=== PATIENT | female | born 1990 | race Caucasian/White ===

== ENCOUNTER 2016-11-08 20:13 | Emergency (ER) | payer MEDICAID, OTHER ==
[~2016-11-08] VITALS: Ht 152.4 cm; Wt 94.8 kg
[~2016-11-08 20:13] MED LIST: ASPI325T; COLA100C2; DOCU10CA PO; MOTR200T44 PO; PERC5TAB8; TYLE325T5 PO
[2016-11-08 20:14] VITALS: BP 11/64
[2016-11-08] MEDS ORDERED: NORCO, ANEXSIA 5/325MG TABLET (HYDROcodone/ACETAMINOPHEN) PO ONE (21:30)
[2016-11-08] MEDS ORDERED: NAPROXEN 250 MG TAB PO ONE (21:30)
[2016-11-08] MEDS ORDERED: PENICILLIN V POTASSIUM 500 MG TAB PO ONE (21:30)
[2016-11-08] MEDS ORDERED: NAPR500T PO (21:36)
[2016-11-08] MEDS ORDERED: PENI250T57 PO (21:36)
== END 2016-11-08 21:57 | disposition home or self-care (01) ==
LOC: M ED 21:37
DX: K03.9 Disease of hard tissues of teeth, unspecified (principal); F17.200 Nicotine dependence, unspecified, uncomplicated

== ENCOUNTER → 2017-07-02 | Outpatient (REF) | payer OTHER ==
[~2017-07-02] MED LIST changes: +NAPR500T PO; +PENI250T57 PO
== END ==
LOC: M LAB REF 11:56
PROVIDERS: ATTEND Surgery
DX: N39.0 Urinary tract infection, site not specified (principal)

== ENCOUNTER 2018-06-15 09:58 | Inpatient (IN) | payer OTHER ==
[2018-06-15] MEDS: CEPHALEXIN 500 MG CAP PO (10:45)
[2018-06-15 12:03] LABS: AMPHETAMINES LEVEL URINE POSITIVE (NEGATIVE); BARBITURATES URINE NEGATIVE (NEGATIVE); BENZODIAZEPINES URINE POSITIVE (NEGATIVE); CANNABINOIDS URINE NEGATIVE (NEGATIVE); COCAINE METABOLITE URINE NEGATIVE (NEGATIVE); METHADONE URINE NEGATIVE (NEGATIVE); OPIATES URINE NEGATIVE (NEGATIVE); PHENCYCLIDINE URINE NEGATIVE (NEGATIVE)
[2018-06-15 12:06] LABS: HEMATOCRIT 38.1 % (36.0-47.0); HEMOGLOBIN 13.6 g/dl (12.0-15.5); MEAN CORPUSCULAR HEMOGLOBIN 32.7 pg (27.0-33.0); MEAN CORPUSCULAR HGB CONC 35.7 g/dl (32.0-36.5); MEAN CORPUSCULAR VOLUME 91.6 fl (80.0-96.0); PLATELET COUNT, AUTOMATED 218 10^3/uL (150-450); RED BLOOD COUNT 4.16 10^6/uL (4.00-5.40); RED CELL DISTRIBUTION WIDTH 12.4 % (11.5-14.5); WHITE BLOOD COUNT 8.3 10^3/uL (4.0-10.0)
[2018-06-15 12:32] LABS: CONTROL LINE HCG INT CTR LINE PRESENT; HCG, SERUM QUALITATIVE NEGATIVE (NEGATIVE)
[2018-06-15 12:42] LABS: ACETAMINOPHEN LEVEL < 2.0 UG/ML (10.0-30.0); ALBUMIN 4.2 GM/DL (3.2-5.2); ALBUMIN/GLOBULIN RATIO 1.14 (1.00-1.93); ALKALINE PHOSPHATASE 81 U/L (45-117); ALT/SGPT 305 U/L (12-78); ANION GAP 10 MEQ/L (8-16); AST/SGOT 137 U/L (7-37); BILIRUBIN,DIRECT 0.3 MG/DL (0.0-0.2); BILIRUBIN,TOTAL 0.9 MG/DL (0.2-1.0); BLOOD UREA NITROGEN 20 MG/DL (7-18); CALCIUM LEVEL 8.6 MG/DL (8.5-10.1); CARBON DIOXIDE LEVEL 21 MEQ/L (21-32); CHLORIDE LEVEL 107 MEQ/L (98-107); CREATININE FOR GFR 0.69 MG/DL (0.55-1.30); ETHYL ALCOHOL (ETHANOL) < 0.003 % (0.000-0.010); GLOMERULAR FILTRATION RATE > 60.0 (>60); GLUCOSE, FASTING 77 MG/DL (70-100); POTASSIUM SERUM 3.9 MEQ/L (3.5-5.1); SODIUM LEVEL 138 MEQ/L (136-145); TOTAL PROTEIN 7.9 GM/DL (6.4-8.2)
[2018-06-15] MEDS ORDERED: ACETAMINOPHEN TAB 650MG DOSE (2X325MG) PO (13:30)
[2018-06-15] MEDS ORDERED: MAALOX 30 ML SUSP *UDC PO (13:30)
[2018-06-15] MEDS ORDERED: MOM 30ML SUSPENSION UDC PO (13:30)
[2018-06-15] MEDS: IBUPROFEN 600 MG TAB PO (13:39)
[2018-06-15 14:06] LABS: HEPATITIS B SURFACE ANTIGEN NEGATIVE (NEGATIVE)
[2018-06-15 15:32] LABS: HEPATITIS A ANTIBODY IGM NEGATIVE (NEGATIVE); HEPATITIS B CORE ANTIBODY IGM NEGATIVE (NEGATIVE); HIV SCREEN CENTAUR EXPOSED NEGATIVE (NEGATIVE)
[2018-06-15 15:38] LABS: HEPATITIS C VIRUS ABY INDEX 0.9 INDEX (<0.8)
[2018-06-16] MEDS: INFLUENZA QUADRIVALENT PF VACCINE 0.5ML SYRINGE (90686) IM (09:22)
[2018-06-16] MEDS: cloNIDine 0.1 MG TAB PO (15:18)
[2018-06-16] MEDS: IBUPROFEN 400 MG TAB PO ×2 (15:19→23:04)
[2018-06-16] MEDS: BUPRENORPHINE/NALOXONE 8-2MG SUBLINGUAL TABLET(SUBOXONE) SL (18:14)
[2018-06-16] MEDS: hydrOXYzine 50 MG TAB PO (23:03)
[2018-06-16] MEDS: traZODone 50 MG TAB PO (23:04)
[2018-06-17 07:33] LABS: ALBUMIN 3.3 GM/DL (3.2-5.2); ALBUMIN/GLOBULIN RATIO 1.03 (1.00-1.93); ALKALINE PHOSPHATASE 94 U/L (45-117); ALT/SGPT 317 U/L (12-78); ANION GAP 6 MEQ/L (8-16); AST/SGOT 181 U/L (7-37); BILIRUBIN,TOTAL 0.3 MG/DL (0.2-1.0); BLOOD UREA NITROGEN 15 MG/DL (7-18); CALCIUM LEVEL 8.8 MG/DL (8.5-10.1); CARBON DIOXIDE LEVEL 27 MEQ/L (21-32); CHLORIDE LEVEL 106 MEQ/L (98-107); CREATININE FOR GFR 0.67 MG/DL (0.55-1.30); GLOMERULAR FILTRATION RATE > 60.0 (>60); GLUCOSE, FASTING 110 MG/DL (70-100); SODIUM LEVEL 139 MEQ/L (136-145); TOTAL PROTEIN 6.5 GM/DL (6.4-8.2)
[2018-06-17] MEDS ORDERED: BUPRENORPHINE/NALOXONE 8-2MG SUBLINGUAL TABLET(SUBOXONE) SL (09:00)
[2018-06-17] MEDS: BUPRENORPHINE/NALOXONE 8-2MG SUBLINGUAL TABLET(SUBOXONE) SL ×2 (09:38→20:00)
[2018-06-17] MEDS: SERTRALINE HCL 50 MG TAB PO (09:38)
[2018-06-17] MEDS: IBUPROFEN 400 MG TAB PO ×2 (09:40→18:34)
[2018-06-17 14:28] LABS: HEPATITIS B CORE ANTIBODY IGM NEGATIVE (NEGATIVE); HEPATITIS B SURFACE ANTIBODY POSITIVE (POSITIVE); HEPATITIS B SURFACE ANTIGEN NEGATIVE (NEGATIVE)
[2018-06-17 14:29] LABS: HEPATITIS C VIRUS ABY INDEX 1.5 INDEX (<0.8)
[2018-06-17] MEDS: hydrOXYzine 50 MG TAB PO (18:33)
[2018-06-17] MEDS: traZODone 50 MG TAB PO (21:52)
[2018-06-17] MEDS: cloNIDine 0.1 MG TAB PO (21:54)
[2018-06-18] MEDS: BUPRENORPHINE/NALOXONE 8-2MG SUBLINGUAL TABLET(SUBOXONE) SL ×2 (08:29→20:10)
[2018-06-18] MEDS: SERTRALINE HCL 50 MG TAB PO (08:29)
[2018-06-18] MEDS: IBUPROFEN 400 MG TAB PO (21:11)
[2018-06-18] MEDS: cloNIDine 0.1 MG TAB PO (21:11)
[2018-06-19] MEDS: BUPRENORPHINE/NALOXONE 8-2MG SUBLINGUAL TABLET(SUBOXONE) SL ×2 (08:32→20:09)
[2018-06-19] MEDS: SERTRALINE HCL 50 MG TAB PO (08:32)
[2018-06-19] MEDS: hydrOXYzine 50 MG TAB PO (15:04)
[2018-06-19] MEDS: IBUPROFEN 400 MG TAB PO (20:09)
[2018-06-20] MEDS: SERTRALINE HCL 50 MG TAB PO (08:07)
[2018-06-20] MEDS: BUPRENORPHINE/NALOXONE 8-2MG SUBLINGUAL TABLET(SUBOXONE) SL (08:29)
[2018-06-21 00:10] LABS: HCV RNA NAA QUALITATIVE Positive (Negative)
[2018-06-22 00:06] LABS: ALPHA 2-MACROGLOBULIN 159 mg/dL (110-276); ALT 317 IU/L (0-40); APOLIPOPROTEIN A-1 96 mg/dL (116-209); FIBROSIS SCORE 0.11 (0.00-0.21); GGT 92 IU/L (0-60); HAPTOGLOBIN 112 mg/dL (34-200); HEPATITIS B CORE ANTIBODY IGG Negative (Negative); HEPATITIS C QUANTITATION 16210 IU/mL (.); HEPATITIS C VIRUS GENOTYPE 2b (.); NECROINFLAM SCORE 0.87 (0.00-0.17); NECROINFLAMM GRADE A3-Severe activity (.); TOTAL BILIRUBIN 0.2 mg/dL (0.0-1.2)
== END 2018-06-20 14:15 | disposition home or self-care (01) | DRG 754 ==
LOC: M ED 09:58 → M ED INP 13:29 → M PSY 15:41
DX: F32.9 Major depressive disorder, single episode, unspecified (principal); F11.11 Opioid abuse, in remission; F41.1 Generalized anxiety disorder; G89.29 Other chronic pain; Z91.411 Personal history of adult psychological abuse; F15.11 Other stimulant abuse, in remission; Z62.810 Personal history of physical and sexual abuse in childhood; Z91.410 Personal history of adult physical and sexual abuse

== ENCOUNTER → 2019-03-09 | Outpatient (CLI) | payer OTHER ==
[~2019-03-09] MED LIST changes: +HYDRO50TAB PO; +NAPR-837 PO; -NAPR500T PO; +SERT-141 PO; +SUBO8MIS SL; +TRAZ1TAB10 PO
== END ==
LOC: M LAB 12:55
PROVIDERS: ATTEND Nurse Practitioner Family
DX: Z01.83 Encounter for blood typing (principal)

== ENCOUNTER → 2019-03-27 | Outpatient (CLI) | payer OTHER ==
[~2019-03-27] MED LIST changes: +HYDR1TAB33 PO; -HYDRO50TAB PO
== END ==
LOC: M LAB 14:56
PROVIDERS: ATTEND Nurse Practitioner Adult Health
DX: Z32.00 Encounter for pregnancy test, result unknown (principal)

== ENCOUNTER 2019-03-29 11:01 | Emergency (ER) | payer OTHER ==
[~2019-03-29] VITALS: Ht 152.4 cm; Wt 100.0 kg
[2019-03-29 12:01] LABS: BASO % 0.1 % (0.0-1.0); EOS # 0.2 10^3/uL (0.0-0.50); EOS % 3.1 % (0.0-3.0); HEMATOCRIT 38.6 % (36.0-47.0); HEMOGLOBIN 13.5 g/dl (12.0-15.5); LYMPH # 2.7 10^3/uL (1.5-4.5); LYMPH % 39.6 % (24.0-44.0); MEAN CORPUSCULAR HEMOGLOBIN 33.3 pg (27.0-33.0); MEAN CORPUSCULAR VOLUME 95.3 fl (80.0-96.0); MONO # 0.7 10^3/uL (0.0-0.8); MONO % 10.8 % (0.0-5.0); NEUTROPHILS # 3.1 10^3/uL (1.8-7.7); NEUTROPHILS % 46.3 % (36.0-66.0); PLATELET COUNT, AUTOMATED 182 10^3/uL (150-450); RED BLOOD COUNT 4.05 10^6/uL (4.00-5.40); WHITE BLOOD COUNT 6.8 10^3/uL (4.0-10.0)
[2019-03-29 13:41] VITALS: BP 122/59
--- NOTE | 2019-03-29 15:03 | REP ---
REASON FOR EXAM: Vaginal bleeding. COMPARISON: None. Transvesical and transvaginal imaging was obtained. The uterus measures 10.7 x 4.8 x 5.3 cm. The parenchymal echo pattern is normal. The endometrial echo complex is somewhat thickened and mildly heterogeneous measuring 1.8 cm in its greatest thickness. There is no evidence of a gestational sac or a pseudogestational sac in the endometrial cavity. Neither ovary was seen transvesically or transvaginally. This significantly limits the exam. There is no free fluid in the pelvis. IMPRESSION: 1. The exam is limited by nonvisualization of the ovaries. Ectopic cannot be ruled out due to this limitation. Findings as described above. Electronically Signed by Vivek Grace DO 03/29/2019 05:12 P
[2019-03-29 15:14] LABS: CHLAMYDIA DNA AMPLIFICATION NEGATIVE (NEGATIVE); GC DNA AMPLIFICATION NEGATIVE (NEGATIVE)
== END 2019-03-29 14:09 | disposition home or self-care (01) ==
LOC: M ED 11:01
DX: O03.9 Complete or unspecified spontaneous abortion without complication (principal); O99.340 Other mental disorders complicating pregnancy, unspecified trimester; Z3A.00 Weeks of gestation of pregnancy not specified

== ENCOUNTER 2019-04-25 10:05 | Emergency (ER) | payer OTHER ==
[~2019-04-25] VITALS: Ht 152.4 cm; Wt 90.7 kg
[2019-04-25] MEDS ORDERED: BUNA10MI (10:12)
[2019-04-25] MEDS ORDERED: GABA600T4 (10:12)
[2019-04-25 10:58] LABS: HEMATOCRIT 37.6 % (36.0-47.0); HEMOGLOBIN 13.3 g/dl (12.0-15.5); MEAN CORPUSCULAR HEMOGLOBIN 33.2 pg (27.0-33.0); MEAN CORPUSCULAR HGB CONC 35.4 g/dl (32.0-36.5); MEAN CORPUSCULAR VOLUME 93.8 fl (80.0-96.0); PLATELET COUNT, AUTOMATED 173 10^3/uL (150-450); RED BLOOD COUNT 4.01 10^6/uL (4.00-5.40); WHITE BLOOD COUNT 6.3 10^3/uL (4.0-10.0)
[2019-04-25 11:27] LABS: AMPHETAMINES LEVEL URINE POSITIVE (NEGATIVE); BARBITURATES URINE NEGATIVE (NEGATIVE); BENZODIAZEPINES URINE POSITIVE (NEGATIVE); CANNABINOIDS URINE NEGATIVE (NEGATIVE); COCAINE METABOLITE URINE NEGATIVE (NEGATIVE); METHADONE URINE NEGATIVE (NEGATIVE); OPIATES URINE NEGATIVE (NEGATIVE); PHENCYCLIDINE URINE NEGATIVE (NEGATIVE)
[2019-04-25 11:45] LABS: HCG, SERUM QUALITATIVE NEGATIVE (NEGATIVE)
[2019-04-25 11:47] LABS: ACETAMINOPHEN LEVEL < 2.0 UG/ML (10.0-30.0); ALBUMIN 3.8 GM/DL (3.2-5.2); ALT/SGPT 71 U/L (12-78); BILIRUBIN,DIRECT 0.1 MG/DL (0.0-0.2); BILIRUBIN,TOTAL 0.3 MG/DL (0.2-1.0); BLOOD UREA NITROGEN 9 MG/DL (7-18); CALCIUM LEVEL 8.7 MG/DL (8.5-10.1); CARBON DIOXIDE LEVEL 25 MEQ/L (21-32); CHLORIDE LEVEL 106 MEQ/L (98-107); CREATININE FOR GFR 0.72 MG/DL (0.55-1.30); ETHYL ALCOHOL (ETHANOL) < 0.003 % (0.000-0.010); GLOMERULAR FILTRATION RATE > 60.0 (>60); GLUCOSE, FASTING 106 MG/DL (70-100); SALICYLATE LEVEL 4.3 MG/DL (5.0-30.0); SODIUM LEVEL 138 MEQ/L (136-145); TOTAL PROTEIN 7.5 GM/DL (6.4-8.2)
--- NOTE | 2019-04-25 12:33 | ECGEPIP ---
[facility] - ED Test Date: 2019-04-25 Pat Name: LOREE SWANSON Department: Room: - Gender: Female District Resource Officer: JIris : 1990 Requested By: Iman Hardwick Order Number: [id number] Reading MD: Bridger Josue Measurements Intervals [place] Rate: 77 P: 35 NC: 162 QRS: 43 QRSD: 83 T: 13 QT: 368 QTc: 417 Interpretive Statements SINUS RHYTHM BENIGN EARLY REPOLARIZATION NONSPECIFIC T WAVE ABNORMALITIES NO PRIORS FOR COMPARISON Electronically Signed on 04-25-2019 12:33:01 EDT by Bridger Josue
[2019-04-25 13:25] VITALS: BP 127/67
== END 2019-04-25 13:27 | disposition home or self-care (01) ==
LOC: M ED 10:05
DX: F13.90 Sedative, hypnotic, or anxiolytic use, unspecified, uncomplicated (principal); F32.9 Major depressive disorder, single episode, unspecified; F41.9 Anxiety disorder, unspecified; F17.200 Nicotine dependence, unspecified, uncomplicated; Z79.899 Other long term (current) drug therapy
CPT/HCPCS: 36415; 80048; 80076; 80307; 84443; 84703; 85027; 93005; 99284; G0480

== ENCOUNTER → 2019-08-15 | Outpatient (REF) | payer OTHER ==
[~2019-08-15] MED LIST changes: +BUNA10MI; +GABA600T4
[2019-08-15 13:30] LABS: BASO % 0.5 % (0.0-1.0); EOS # 0.2 10^3/uL (0.0-0.5); EOS % 2.2 % (0.0-3.0); HEMATOCRIT 40.6 % (36.0-47.0); HEMOGLOBIN 13.9 g/dl (12.0-15.5); LYMPH # 4.1 10^3/uL (1.5-5.0); LYMPH % 52.6 % (24.0-44.0); MEAN CORPUSCULAR HEMOGLOBIN 32.3 pg (27.0-33.0); MEAN CORPUSCULAR HGB CONC 34.2 g/dl (32.0-36.5); MEAN CORPUSCULAR VOLUME 94.2 fl (80.0-96.0); MONO # 0.8 10^3/uL (0.0-0.8); NEUTROPHILS # 2.7 10^3/uL (1.5-8.5); NEUTROPHILS % 34.6 % (36.0-66.0); PLATELET COUNT, AUTOMATED 189 10^3/uL (150-450); RED BLOOD COUNT 4.31 10^6/uL (4.00-5.40); WHITE BLOOD COUNT 7.7 10^3/uL (4.0-10.0)
[2019-08-15 13:46] LABS: ALBUMIN 3.9 GM/DL (3.2-5.2); ALT/SGPT 23 U/L (12-78); BILIRUBIN,TOTAL 0.2 MG/DL (0.2-1.0); BLOOD UREA NITROGEN 14 MG/DL (7-18); CALCIUM LEVEL 8.8 MG/DL (8.5-10.1); CARBON DIOXIDE LEVEL 24 MEQ/L (21-32); CHLORIDE LEVEL 108 MEQ/L (98-107); CHOLESTEROL LEVEL 204 MG/DL (<200); CREATININE FOR GFR 0.66 MG/DL (0.55-1.30); GLOMERULAR FILTRATION RATE > 60.0 (>60); GLUCOSE, FASTING 96 MG/DL (70-100); HDL CHOLESTEROL 34 MG/DL (>40); LDL CHOLESTEROL 110 MG/DL (<100); NON-HDL-C 170 MG/DL; SODIUM LEVEL 139 MEQ/L (136-145); TOTAL 25(OH) VITAMIN D 10.8 NG/ML (30.0-100.0); TOTAL PROTEIN 7.6 GM/DL (6.4-8.2); TRIGLYCERIDES LEVEL 302 MG/DL (<150)
[2019-08-15 16:58] LABS: HEMOGLOBIN A1c 5.1 %
[2019-08-16 08:52] LABS: HEPATITIS B SURFACE ANTIBODY POSITIVE (POSITIVE)
[2019-08-16 11:29] LABS: HEPATITIS B SURFACE ANTIGEN NEGATIVE (NEGATIVE)
== END ==
LOC: M LAB REF 12:25
PROVIDERS: ATTEND Physician Assistant
DX: Z68.39 Body mass index [BMI] 39.0-39.9, adult (principal); K59.01 Slow transit constipation; F41.1 Generalized anxiety disorder; Z00.00 Encounter for general adult medical examination without abnormal findings; E66.9 Obesity, unspecified

== ENCOUNTER 2019-09-17 18:18 | Emergency (ER) | payer OTHER ==
[~2019-09-17] VITALS: Ht 152.4 cm; Wt 94.1 kg
[2019-09-17] MEDS ORDERED: NAPR250T4 (18:27)
[2019-09-17] MEDS ORDERED: BUNA10MI (18:27)
[2019-09-17] MEDS ORDERED: ACETAMINOPHEN 325 MG TAB PO ONE (19:15)
[2019-09-17] MEDS ORDERED: predniSONE 20 MG TAB PO ONE (19:15)
[2019-09-17 19:44] LABS: BASO % 0.2 % (0.0-1.0); EOS # 0.1 10^3/uL (0.0-0.5); EOS % 0.7 % (0.0-3.0); HEMATOCRIT 40.6 % (36.0-47.0); HEMOGLOBIN 13.6 g/dl (12.0-15.5); LYMPH % 16.3 % (24.0-44.0); MEAN CORPUSCULAR HEMOGLOBIN 31.9 pg (27.0-33.0); MEAN CORPUSCULAR HGB CONC 33.5 g/dl (32.0-36.5); MEAN CORPUSCULAR VOLUME 95.3 fl (80.0-96.0); MONO # 1.3 10^3/uL (0.0-0.8); MONO % 10.9 % (0.0-5.0); NEUTROPHILS # 8.8 10^3/uL (1.5-8.5); NEUTROPHILS % 71.6 % (36.0-66.0); PLATELET COUNT, AUTOMATED 145 10^3/uL (150-450); RED BLOOD COUNT 4.26 10^6/uL (4.00-5.40); WHITE BLOOD COUNT 12.3 10^3/uL (4.0-10.0)
[2019-09-17 20:06] LABS: MONO REFLEX EBV COMP NEGATIVE (NEGATIVE)
[2019-09-17] MEDS ORDERED: CEPHALEXIN 500 MG CAP PO ONE (20:30)
[2019-09-17] MEDS ORDERED: PRED20TA PO (20:37)
[2019-09-17] MEDS ORDERED: KEFL500C17 PO (20:37)
[2019-09-17 20:50] VITALS: BP 131/61
[2019-09-20 00:06] LABS: EBV VIRAL CAPSID AG IgM <36.0 U/mL (0.0-35.9)
== END 2019-09-17 21:07 | disposition home or self-care (01) ==
LOC: M ED 18:18
DX: J03.90 Acute tonsillitis, unspecified (principal); R51 Headache; Z79.899 Other long term (current) drug therapy; F17.210 Nicotine dependence, cigarettes, uncomplicated

== ENCOUNTER → 2020-01-02 | Outpatient (REF) | payer OTHER, MEDICAID ==
[~2020-01-02] MED LIST changes: +KEFL500C17 PO; +NAPR250T4; +PRED20TA PO
[2020-01-02 13:28] LABS: FREE T4 1.04 NG/DL (0.76-1.46); THYROID STIMULATING HORMONE 7.13 uIU/ML (0.358-3.740)
== END ==
LOC: M LAB REF 11:39
PROVIDERS: ATTEND Physician Assistant
DX: E03.9 Hypothyroidism, unspecified (principal)

== ENCOUNTER → 2020-01-22 | Outpatient (REF) | payer OTHER, MEDICAID ==
[~2020-01-22] MED LIST changes: +SUBO2MIS SL
[2020-01-22 18:13] LABS: ALBUMIN 4.5 GM/DL (3.2-5.2); ALT/SGPT 37 U/L (12-78); BILIRUBIN,TOTAL 0.3 MG/DL (0.2-1.0); BLOOD UREA NITROGEN 11 MG/DL (7-18); CALCIUM LEVEL 9.3 MG/DL (8.5-10.1); CARBON DIOXIDE LEVEL 25 MEQ/L (21-32); CHLORIDE LEVEL 104 MEQ/L (98-107); CREATININE FOR GFR 0.77 MG/DL (0.55-1.30); GLOMERULAR FILTRATION RATE > 60.0 (>60); GLUCOSE, FASTING 88 MG/DL (70-100); POTASSIUM SERUM 3.9 MEQ/L (3.5-5.1); SODIUM LEVEL 136 MEQ/L (136-145); THYROGLOBULIN ANTIBODY < 15.0 U/ML (<60.0); THYROID PEROXIDASE ANTIBODY 63.2 U/ML (<60.0); THYROXINE (T4) 8.6 UG/DL (4.5-12.0); TOTAL PROTEIN 8.2 GM/DL (6.4-8.2); TOTAL T3 131.5 NG/DL (60.0-181.0)
== END ==
LOC: M LAB REF 16:24
PROVIDERS: ATTEND Family Medicine
DX: R60.0 Localized edema (principal)

== ENCOUNTER 2020-04-14 12:37 | Emergency (ER) | payer OTHER ==
[~2020-04-14] VITALS: Ht 152.4 cm; Wt 92.8 kg
[~2020-04-14 12:37] MED LIST changes: -SUBO2MIS SL
[2020-04-14 12:38] VITALS: BP 113/62
[2020-04-14] MEDS ORDERED: SUBO2MIS SL (12:56)
[2020-04-14] MEDS ORDERED: LIDOCAINE 5% (LIDODERM) PATCH TD ONE (14:00)
[2020-04-14] MEDS ORDERED: NS 1,000 ML IV ONE (14:00)
[2020-04-14 14:33] LABS: BASO % 0.3 % (0.0-1.0); EOS # 0.2 10^3/uL (0.0-0.5); EOS % 1.7 % (0.0-3.0); HEMATOCRIT 40.3 % (36.0-47.0); HEMOGLOBIN 14.1 g/dl (12.0-15.5); LYMPH # 2.8 10^3/uL (1.5-5.0); MEAN CORPUSCULAR HEMOGLOBIN 32.5 pg (27.0-33.0); MEAN CORPUSCULAR VOLUME 92.9 fl (80.0-96.0); MONO % 10.2 % (0.0-5.0); NEUTROPHILS # 5.6 10^3/uL (1.5-8.5); NEUTROPHILS % 58.6 % (36.0-66.0); PLATELET COUNT, AUTOMATED 207 10^3/uL (150-450); RED BLOOD COUNT 4.34 10^6/uL (4.00-5.40); WHITE BLOOD COUNT 9.6 10^3/uL (4.0-10.0)
[2020-04-14 15:07] LABS: ALBUMIN 4.2 GM/DL (3.2-5.2); ALT/SGPT 39 U/L (12-78); BILIRUBIN,DIRECT < 0.1 MG/DL (0.0-0.2); BILIRUBIN,TOTAL 0.4 MG/DL (0.2-1.0); BLOOD UREA NITROGEN 12 MG/DL (7-18); CALCIUM LEVEL 9.2 MG/DL (8.5-10.1); CARBON DIOXIDE LEVEL 26 MEQ/L (21-32); CHLORIDE LEVEL 107 MEQ/L (98-107); CK-MB VALUE MASS 3.6 NG/ML (<3.6); CPK CREATINE PHOSPHOKINASE 291 U/L (26-192); CREATININE FOR GFR 0.68 MG/DL (0.55-1.30); GLOMERULAR FILTRATION RATE > 60.0 (>60); GLUCOSE, FASTING 84 MG/DL (70-100); LIPASE 61 U/L (73-393); MB/CK RELATIVE INDEX 1.24 (< OR =4); POTASSIUM SERUM 4.5 MEQ/L (3.5-5.1); SODIUM LEVEL 137 MEQ/L (136-145); TOTAL PROTEIN 8.1 GM/DL (6.4-8.2); TROPONIN I < 0.02 NG/ML (< 0.10)
[2020-04-14] MEDS ORDERED: ACETAMINOPHEN 500 MG TAB PO ONE (15:30)
[2020-04-14] MEDS ORDERED: **NOTE PATIENT COMMENT** MISC XX SCH (21:00)
== END 2020-04-14 15:40 | disposition left against medical advice (07) ==
LOC: M ED 12:37
DX: R10.9 Unspecified abdominal pain (principal); M51.9 Unspecified thoracic, thoracolumbar and lumbosacral intervertebral disc disorder; F91.3 Oppositional defiant disorder; F19.11 Other psychoactive substance abuse, in remission; H57.11 Ocular pain, right eye; F17.200 Nicotine dependence, unspecified, uncomplicated

== ENCOUNTER → 2021-02-21 | Outpatient (CLI) | payer OTHER ==
[~2021-02-21] MED LIST changes: +NAPR-849; -NAPR250T4; +SUBO2MIS SL
--- NOTE | 2021-02-21 17:48 | REP ---
INDICATION: EDEMA. TECHNIQUE: Multiple ultrasonographic images of the deep venous structures of the bilateral thighs were obtained from the level of the common femoral vein to the popliteal vein in the longitudinal and transverse scan planes along with Doppler interrogation and color flow Doppler imaging. Additional imaging able to be performed for the posterior tibial and peroneal veins. FINDINGS: There is no abnormal echogenic material seen within any of the visualized deep venous structures that would suggest acute thrombosis. Coaptation is unremarkable throughout. From the common femoral veins through the tibioperoneal trunk bilaterally. The right posterior tibial and peroneal veins are compressible throughout. The left posterior tibial vein is compressible throughout. The left peroneal vein is not seen due to patient body habitus. Doppler interrogation shows an expected response to respiratory variability and augmentation. The color flow Doppler images show what appears to be a normal vascular pattern throughout. There is a 3.3 x 2 x 1.2 cm popliteal fossa cyst in the right popliteal fossa superficial to the popliteal vessels. IMPRESSION: There is no ultrasonographic evidence of deep venous thrombosis involving any of the visualized deep venous structures of the bilateral thighs as described above. In the proximal calves the posterior tibial vein and right peroneal veins are seen and compressible throughout. The left peroneal vein is not seen due to patient body habitus. There is a 3.3 x 2 x 1.2 cm popliteal fossa cyst on the right. Accredited by the [employer] in Vascular Peripheral Ultrasound. <Electronically signed by Houston Owusu > 02/21/21 2315
== END ==
LOC: M RAD 16:13
PROVIDERS: ATTEND Nurse Practitioner Family
DX: R60.0 Localized edema (principal)

== ENCOUNTER 2022-02-13 15:36 | Inpatient (IN) | payer OTHER ==
[~2022-02-13] VITALS: Ht 152.4 cm; Wt 90.9 kg
[2022-02-13] MEDS ORDERED: CLON1TAB8 PO (15:48)
[2022-02-13] MEDS ORDERED: SUBO8MIS PO (15:48)
[2022-02-13] MEDS ORDERED: ZOLP10TA2 PO (15:48)
[2022-02-13] MEDS ORDERED: VRAY3CAP PO (15:48)
[2022-02-13 16:47] LABS: BASO % 0.3 % (0.0-1.0); EOS # 0.1 10^3/uL (0.0-0.5); EOS % 0.7 % (0.0-3.0); HEMATOCRIT 41.5 % (36.0-47.0); HEMOGLOBIN 14.9 g/dl (12.0-15.5); LYMPH # 2.2 10^3/uL (1.5-5.0); LYMPH % 24.7 % (24.0-44.0); MEAN CORPUSCULAR HGB CONC 35.9 g/dl (32.0-36.5); MEAN CORPUSCULAR VOLUME 94.7 fl (80.0-96.0); MONO # 0.9 10^3/uL (0.0-0.8); MONO % 10.4 % (2.0-8.0); NEUTROPHILS # 5.6 10^3/uL (1.5-8.5); NEUTROPHILS % 63.7 % (36.0-66.0); PLATELET COUNT, AUTOMATED 216 10^3/uL (150-450); RED BLOOD COUNT 4.38 10^6/uL (4.00-5.40); WHITE BLOOD COUNT 8.7 10^3/uL (4.0-10.0)
[2022-02-13] MEDS: BUPRENORPHINE/NALOXONE 8-2MG SUBLINGUAL TABLET(SUBOXONE) SL SCH ×2 (16:58→21:48)
[2022-02-13 17:05] LABS: AMPHETAMINES LEVEL URINE POSITIVE (NEGATIVE); BARBITURATES URINE NEGATIVE (NEGATIVE); BENZODIAZEPINES URINE NEGATIVE (NEGATIVE); CANNABINOIDS URINE NEGATIVE (NEGATIVE); COCAINE METABOLITE URINE NEGATIVE (NEGATIVE); METHADONE URINE NEGATIVE (NEGATIVE); OPIATES URINE NEGATIVE (NEGATIVE); PHENCYCLIDINE URINE NEGATIVE (NEGATIVE)
[2022-02-13 17:06] LABS: HCG, SERUM QUALITATIVE NEGATIVE (NEGATIVE)
[2022-02-13 17:10] LABS: RSV AMPLIFICATION NEGATIVE (NEGATIVE)
[2022-02-13 17:12] LABS: ACETAMINOPHEN LEVEL < 2.0 UG/ML (10.0-30.0); ALBUMIN 4.6 GM/DL (3.2-5.2); ALT/SGPT 87 U/L (12-78); BILIRUBIN,DIRECT 0.2 MG/DL (0.0-0.2); BILIRUBIN,TOTAL 0.6 MG/DL (0.2-1.0); BLOOD UREA NITROGEN 11 MG/DL (7-18); CALCIUM LEVEL 9.6 MG/DL (8.5-10.1); CARBON DIOXIDE LEVEL 24 MEQ/L (21-32); CHLORIDE LEVEL 107 MEQ/L (98-107); CREATININE FOR GFR 1.09 MG/DL (0.55-1.30); ETHYL ALCOHOL (ETHANOL) < 0.003 % (0.000-0.010); GLOMERULAR FILTRATION RATE > 60.0 (>60); GLUCOSE, FASTING 91 MG/DL (70-100); POTASSIUM SERUM 3.9 MEQ/L (3.5-5.1); SALICYLATE LEVEL 4.8 MG/DL (5.0-30.0); SODIUM LEVEL 139 MEQ/L (136-145); TOTAL PROTEIN 8.3 GM/DL (6.4-8.2)
[2022-02-13] MEDS ORDERED: NICOTINE 21MG/24HR 1 EA TRANSDERMAL TD PRN (20:45)
[2022-02-13] MEDS ORDERED: ACETAMINOPHEN TAB 650MG DOSE (2X325MG) PO PRN (20:45)
[2022-02-13] MEDS ORDERED: traZODone 50 MG TAB PO PRN (20:45)
[2022-02-13] MEDS ORDERED: MAALOX 30 ML SUSP *UDC PO PRN (20:45)
[2022-02-13] MEDS ORDERED: MOM 30ML SUSPENSION UDC PO PRN (20:45)
[2022-02-13] MEDS ORDERED: ADDE20TA PO (22:11)
[2022-02-13] MEDS ORDERED: HOME MED LIST COMPLETE! XX SCH (22:15)
[2022-02-14] MEDS: OLANZapine ORAL DISINTEGRATING TAB 5MG PO PRN ×4 (01:24→21:14)
[2022-02-14 06:00] VITALS: BP 104/52
[2022-02-14] MEDS: NYSTATIN 100,000 UNITS/GM TOPICAL PWD 15 GM TOP SCH ×2 (09:00→21:14)
[2022-02-14] MEDS: BUPRENORPHINE/NALOXONE 8-2MG SUBLINGUAL TABLET(SUBOXONE) SL SCH ×3 (11:43→21:14)
[2022-02-14 17:24] VITALS: BP 121/75
[2022-02-14] MEDS: CARIPRAZINE 3MG CAPSULE (VRAYLAR) PO SCH (21:14)
[2022-02-15 06:50] VITALS: BP 99/54
[2022-02-15] MEDS: NYSTATIN 100,000 UNITS/GM TOPICAL PWD 15 GM TOP SCH ×2 (09:00→11:55)
[2022-02-15] MEDS: BUPRENORPHINE/NALOXONE 8-2MG SUBLINGUAL TABLET(SUBOXONE) SL SCH ×3 (09:44→20:51)
[2022-02-15] MEDS: OLANZapine ORAL DISINTEGRATING TAB 5MG PO PRN ×2 (10:17→15:40)
[2022-02-15 17:34] VITALS: BP 153/94
[2022-02-15] MEDS: CARIPRAZINE 3MG CAPSULE (VRAYLAR) PO SCH (20:51)
[2022-02-16] MEDS: NYSTATIN 100,000 UNITS/GM TOPICAL PWD 15 GM TOP SCH ×2 (09:00→20:19)
[2022-02-16] MEDS: BUPRENORPHINE/NALOXONE 8-2MG SUBLINGUAL TABLET(SUBOXONE) SL SCH ×3 (09:13→20:18)
[2022-02-16] MEDS: OLANZapine ORAL DISINTEGRATING TAB 5MG PO PRN ×2 (11:39→19:18)
[2022-02-16 18:19] VITALS: BP 138/84
[2022-02-16] MEDS: CARIPRAZINE 3MG CAPSULE (VRAYLAR) PO SCH (20:19)
[2022-02-17 06:37] VITALS: BP 115/73
[2022-02-17] MEDS: BUPRENORPHINE/NALOXONE 8-2MG SUBLINGUAL TABLET(SUBOXONE) SL SCH (08:54)
[2022-02-17] MEDS: NYSTATIN 100,000 UNITS/GM TOPICAL PWD 15 GM TOP SCH (08:55)
[2022-02-17] MEDS ORDERED: NYST10006 TOP (10:02)
[2022-02-17] MEDS ORDERED: VRAY3CAP PO (10:02)
== END 2022-02-17 11:34 | disposition home or self-care (01) | DRG 754 ==
LOC: M ED 15:36 → M ED INP 20:44 → M PSY 02-14 00:31
PROVIDERS: ADMIT Psychiatry & Neurology Psychiatry; ATTEND Psychiatry & Neurology Psychiatry
DX: F32.A Depression, unspecified (principal); F60.89 Other specific personality disorders; F60.3 Borderline personality disorder; F15.90 Other stimulant use, unspecified, uncomplicated; F11.90 Opioid use, unspecified, uncomplicated; F17.210 Nicotine dependence, cigarettes, uncomplicated; Z62.810 Personal history of physical and sexual abuse in childhood; Z63.0 Problems in relationship with spouse or partner; Z63.4 Disappearance and death of family member; Z20.822 Contact with and (suspected) exposure to COVID-19; Z79.899 Other long term (current) drug therapy; E66.01 Morbid (severe) obesity due to excess calories; Z68.39 Body mass index [BMI] 39.0-39.9, adult

== ENCOUNTER 2023-08-17 16:01 | Emergency (ER) | payer OTHER ==
[~2023-08-17] VITALS: Ht 152.4 cm; Wt 111.5 kg
[~2023-08-17 16:01] MED LIST changes: +ADDE20TA PO; +CLON1TAB8 PO; +NYST10006 TOP; +SUBO8MIS PO; +VRAY3CAP PO; +ZOLP10TA2 PO
[2023-08-17 16:20] VITALS: TEMP 97.4
[2023-08-17] MEDS ORDERED: BISACODYL 10MG SUPP PR ONE (19:05)
[2023-08-17] MEDS ORDERED: ACETAMINOPHEN 500 MG TAB PO ONE (19:55)
[2023-08-17] MEDS ORDERED: DULC10SU2 PR (20:12)
[2023-08-17 20:18] VITALS: BP 120/72; O2SAT 99
== END 2023-08-17 20:19 | disposition home or self-care (01) ==
LOC: M ED 16:01
DX: K59.00 Constipation, unspecified (principal); F17.210 Nicotine dependence, cigarettes, uncomplicated; Z79.891 Long term (current) use of opiate analgesic; Z79.899 Other long term (current) drug therapy

== ENCOUNTER 2025-06-09 10:47 | Emergency (ER) | payer MEDICARE, MEDICAID ==
[~2025-06-09] VITALS: Ht 152.4 cm; Wt 88.4 kg
[~2025-06-09 10:47] MED LIST changes: +ALPR1TAB3 PO; +AMPH1CAP5 PO; +DULC10SU2 PR; +GABA-1490; -GABA600T4; +PRAZ5CAP PO; -SUBO8MIS PO; +ZOLP10TA11 PO; -ZOLP10TA2 PO
[2025-06-09 10:49] VITALS: BP 132/71; O2SAT 99
[2025-06-09 10:52] VITALS: TEMP 97.6
== END 2025-06-09 12:02 | disposition left against medical advice (07) ==
LOC: M ED 10:47 → EDBD 10:47 → M ED 12:02
DX: Z53.21 Procedure and treatment not carried out due to patient leaving prior to being seen by health care provider (principal)

== ENCOUNTER 2025-06-11 21:13 | Emergency (ER) | payer MEDICARE, MEDICAID ==
[~2025-06-11] VITALS: Ht 152.4 cm; Wt 86.9 kg
[2025-06-11] MEDS: TETANUS/DIPHTH/ACEL. PERTUSSIS 0.5 ML SYR IM.IMMUN ONE (22:02)
[2025-06-11] MEDS: CEPHALEXIN 500 MG CAP PO ONE (22:51)
[2025-06-11] MEDS ORDERED: CEPH500C PO (23:21)
[2025-06-11 23:33] VITALS: BP 114/76; TEMP 97.1; O2SAT 95
== END 2025-06-11 23:35 | disposition home or self-care (01) ==
LOC: M ED 21:19
DX: S61.411A Laceration without foreign body of right hand, initial encounter (principal); Y92.9 Unspecified place or not applicable; Y93.9 Activity, unspecified; Y99.9 Unspecified external cause status; F41.9 Anxiety disorder, unspecified; F17.210 Nicotine dependence, cigarettes, uncomplicated; Z79.899 Other long term (current) drug therapy; Z23 Encounter for immunization

== ENCOUNTER 2025-06-19 20:35 | Emergency (ER) | payer MEDICARE, MEDICAID ==
[~2025-06-19] VITALS: Ht 152.4 cm; Wt 90.0 kg
[~2025-06-19 20:35] MED LIST changes: +CEPH500C PO
[2025-06-19 20:39] VITALS: BP 119/71; TEMP 97.7; O2SAT 98
== END 2025-06-19 22:40 | disposition left against medical advice (07) ==
LOC: M ED 20:35
DX: Z53.21 Procedure and treatment not carried out due to patient leaving prior to being seen by health care provider (principal)